=== PATIENT | male | born 1970 | race Caucasian/White ===

== ENCOUNTER → 2022-02-28 | Outpatient (CLI) | payer OTHER | LOC: M RAD 07:37 | PROVIDERS: ATTEND Family Medicine | DX: R14.3 Flatulence (principal); R10.84 Generalized abdominal pain; R93.5 Abnormal findings on diagnostic imaging of other abdominal regions, including retroperitoneum ==

== ENCOUNTER 2022-03-31 08:20 | Emergency (ER) | payer OTHER ==
[~2022-03-31] VITALS: Ht 180.3 cm; Wt 93.8 kg
[2022-03-31] MEDS ORDERED: ATOR40TA75 (08:29)
[2022-03-31 09:38] LABS: BASO % 0.3 % (0.0-1.0); EOS # 0.1 10^3/uL (0.0-0.5); EOS % 0.6 % (0.0-3.0); HEMATOCRIT 50.2 % (42.0-52.0); LYMPH # 1.9 10^3/uL (1.5-5.0); LYMPH % 19.9 % (24.0-44.0); MEAN CORPUSCULAR HEMOGLOBIN 31.7 pg (27.0-33.0); MEAN CORPUSCULAR HGB CONC 33.9 g/dl (32.0-36.5); MEAN CORPUSCULAR VOLUME 93.7 fl (80.0-96.0); MONO # 0.7 10^3/uL (0.0-0.8); MONO % 7.3 % (2.0-8.0); NEUTROPHILS # 6.8 10^3/uL (1.5-8.5); NEUTROPHILS % 71.5 % (36.0-66.0); PLATELET COUNT, AUTOMATED 242 10^3/uL (150-450); RED BLOOD COUNT 5.36 10^6/uL (4.30-6.10); WHITE BLOOD COUNT 9.6 10^3/uL (4.0-10.0)
[2022-03-31 10:02] LABS: ALBUMIN 4.1 G/DL (3.2-5.2); ALKALINE PHOSPHATASE 92 U/L (46-116); ALT/SGPT 27 U/L (7.0-40); AST/SGOT 23 U/L (<34); BILIRUBIN,DIRECT 0.2 MG/DL (<0.4); BILIRUBIN,TOTAL 0.8 MG/DL (0.3-1.2); BLOOD UREA NITROGEN 12 MG/DL (9-23); CALCIUM LEVEL 9.7 MG/DL (8.5-10.1); CARBON DIOXIDE LEVEL 24 MMOL/L (20-31); CHLORIDE LEVEL 107 MMOL/L (98-107); CREATININE FOR GFR 0.79 MG/DL (0.70-1.30); GLOMERULAR FILTRATION RATE > 60.0 (>56); GLUCOSE, FASTING 114 MG/DL (60-100); POTASSIUM SERUM 4.3 MMOL/L (3.5-5.1); SODIUM LEVEL 138 MMOL/L (136-145); TOTAL PROTEIN 7.3 G/DL (5.7-8.2)
[2022-03-31] MEDS ORDERED: ONDANSETRON 4MG ORAL DISINTEGRATING TAB PO ONE (14:20)
[2022-03-31] MEDS ORDERED: MECL1TAB31 PO (15:16)
[2022-03-31] MEDS ORDERED: ONDA4TAB6 PO (15:16)
[2022-03-31 15:31] VITALS: BP 135/76
== END 2022-03-31 15:35 | disposition home or self-care (01) ==
LOC: M ED 08:20
DX: H81.10 Benign paroxysmal vertigo, unspecified ear (principal); E78.5 Hyperlipidemia, unspecified; Z79.899 Other long term (current) drug therapy

== ENCOUNTER 2022-08-30 09:00 | Emergency (ER) | payer OTHER ==
[~2022-08-30] VITALS: Ht 180.3 cm; Wt 93.9 kg
[~2022-08-30 09:00] MED LIST: ATOR40TA75; MECL1TAB31 PO; ONDA4TAB6 PO
[2022-08-30 13:19] VITALS: BP 137/80; TEMP 98.2; O2SAT 100
== END 2022-08-30 13:20 | disposition home or self-care (01) ==
LOC: M ED 09:00
DX: S43.401A Unspecified sprain of right shoulder joint, initial encounter (principal); W19.XXXA Unspecified fall, initial encounter; Y92.242 Post office as the place of occurrence of the external cause; Y99.0 Civilian activity done for income or pay; Z79.899 Other long term (current) drug therapy

== ENCOUNTER 2022-09-21 02:34 | Emergency (ER) | payer OTHER ==
[~2022-09-21] VITALS: Ht 180.3 cm; Wt 93.2 kg
[~2022-09-21 02:34] MED LIST changes: -ATOR40TA75; +ATOR40TA75 PO
[2022-09-21 03:59] LABS: RSV AMPLIFICATION NEGATIVE (NEGATIVE)
[2022-09-21] MEDS ORDERED: VITA100093 PO (07:48)
[2022-09-21] MEDS ORDERED: MED REC IN PROGRESS XX SCH (08:05)
[2022-09-21] MEDS ORDERED: HOME MED LIST COMPLETE! XX SCH (08:25)
[2022-09-21] MEDS ORDERED: NIRMATRELVIR/RITONAVIR CO-PACK (EMERGENCY USE AUTH) PO SCH ×2 (08:30→09:00)
[2022-09-21 10:35] VITALS: BP 101/66; TEMP 99.4; O2SAT 97
== END 2022-09-21 10:50 | disposition home or self-care (01) ==
LOC: M ED 02:34
DX: U07.1 COVID-19 (principal); E78.5 Hyperlipidemia, unspecified; Z79.899 Other long term (current) drug therapy

== ENCOUNTER → 2022-09-25 | Outpatient (CLI) | payer OTHER ==
[~2022-09-25] MED LIST changes: +VITA100093 PO
== END ==
LOC: M RAD 14:44
PROVIDERS: ATTEND Orthopaedic Surgery
DX: M25.511 Pain in right shoulder (principal); M67.89 Other specified disorders of synovium and tendon, multiple sites; M19.011 Primary osteoarthritis, right shoulder; M75.51 Bursitis of right shoulder